=== PATIENT | male | born 1950 | race Hispanic/Latino ===

== ENCOUNTER 2017-02-14 16:04 | Inpatient (IN) | payer BC, MEDICARE ==
--- NOTE | 2017-02-14 17:25 | C.PDOC ---
History Of Present Illness 66 y/o male with Hx of HLD, HTN, DM and Asthma sent to ED by PMD for high blood pressure and abnormality to EKG. Patient also reports intermittent upper left arm pain 5/10 radiating to neck since last night. Patient saw Dr. Bishop who referred patient come to ED for further evaluation. Patient denies sob, dyspnea with exertion, fever or any other complaints at this time. Time Seen by Provider: 02/14/17 16:56 Chief Complaint (Nursing): Chest Pain History Per: Patient History/Exam Limitations: no limitations Onset/Duration Of Symptoms: Hrs Current Symptoms Are (Timing): Still Present Quality: "Pain" Past Medical History Reviewed: Historical Data, Nursing Documentation, Vital Signs Vital Signs: Last Vital Signs Temp 98.0 F 02/15/17 08:07 Pulse 69 02/15/17 08:07 Resp 20 02/15/17 08:07 BP 171/84 H 02/15/17 08:07 Pulse Ox 96 02/15/17 08:07 - Medical History PMH: Asthma, Diabetes, HTN, Pneumonia Surgical History: No Surg Hx Family History: States: No Known Family Hx - Social History Hx Tobacco Use: Yes (smokes pipe) Hx Alcohol Use: No Hx Substance Use: No - Immunization History Hx Influenza Vaccination: No Review Of Systems Except As Marked, All Systems Reviewed And Found Negative. Constitutional: Negative for: Fever, Chills Cardiovascular: Negative for: Chest Pain Gastrointestinal: Negative for: Nausea, Vomiting Musculoskeletal: Positive for: Neck Pain, Arm Pain Skin: Negative for: Rash Neurological: Negative for: Weakness, Numbness Physical Exam - Physical Exam Appears: Non-toxic, No Acute Distress Skin: Normal Color, Warm, Dry, No Rash Head: Atraumatic, Normacephalic Eye(s): bilateral: Normal Inspection Oral Mucosa: Moist Neck: Normal ROM, Supple Chest: Symmetrical Cardiovascular: Murmur (Holosystolic) Respiratory: Normal Breath Sounds, No Rales, No Rhonchi, No Wheezing Gastrointestinal/Abdominal: Soft, No Tenderness, No Guarding, No Rebound Extremity: No Pedal Edema, Capillary Refill (<2 seconds), No Swelling Neurological/Psych: Oriented x3 ED Course And Treatment - Laboratory Results Result Diagrams: 02/15/17 07:48 02/15/17 07:48 O2 Sat by Pulse Oximetry: 97 (RA) Pulse Ox Interpretation: Normal Medical Decision Making Medical Decision Making: Discussed with Dr. Abdi agreed to admit patient and request for Dr. Moses to evaluate Disposition Discussed With : Nasreen Abdi Counseled Patient/Family Regarding: Studies Performed - Disposition Disposition: HOSPITALIZED Disposition Time: 18:33 Condition: SERIOUS - POA Present On Arrival: None - Clinical Impression Clinical Impression: Chest pain, ACS (acute coronary syndrome), Abnormal EKG - Scribe Statement The provider has reviewed the documentation as recorded by the Jameyibhunter Jimenez All medical record entries made by the Jameyibe were at my direction and personally dictated by me. I have reviewed the chart and agree that the record accurately reflects my personal performance of the history, physical exam, medical decision making, and the department course for this patient. I have also personally directed, reviewed, and agree with the discharge instructions and disposition. Decision To Admit - Pt Status Changed To: Hospital Disposition Of: Inpatient - Admit Certification Admit to Inpatient:: After my assessment, the patient will require hospitalization for at least two midnights. This is because of the severity of symptoms shown, intensity of services needed, and/or the medical risk in this patient being treated as an outpatient. - InPatient: Physician Admission Certification: I certify that this patient requires 2 or more midnights of care for the following reason:: acs - . Bed Request Type: Telemetry Patient Diagnosis: Chest pain, ACS (acute coronary syndrome), Abnormal EKG
[2017-02-14 17:37] LABS: BASO % 0.6 % (0.0-2.0); EOS # 0.1 K/uL (0.0-0.7); EOS % 1.8 % (0.0-4.0); HEMATOCRIT 42.1 % (35.0-51.0); LYMPH # 2.4 K/uL (1.0-4.3); LYMPH % 35.4 % (20.0-40.0); MEAN CELL VOLUME 84.5 fL (80.0-94.0); MEAN CORPUSCULAR HEMOGLOBIN 29.1 pg (27.0-31.0); MEAN CORPUSCULAR HGB CONC 34.5 g/dL (33.0-37.0); MEAN PLATELET VOLUME 7.8 fL (7.2-11.7); MONO # 0.7 K/uL (0.0-0.8); MONO % 9.9 % (0.0-10.0); NRBC % 0.1 % (0.0-2.0); RED CELL DISTRIBUTION WIDTH 13.5 % (11.5-14.5); WHITE BLOOD COUNT 6.8 K/uL (4.8-10.8)
[2017-02-14 17:44] LABS: CHLORIDE 102 mmol/L (98-107); POTASSIUM 3.5 mmol/L (3.6-5.2); SODIUM 139 mmol/L (132-148)
[2017-02-14 17:46] LABS: ALB/GLOB RATIO 1.3 (1.0-2.1); ALKALINE PHOSPHATASE 107 U/L (38-126); AST/SGOT 28 U/L (17-59); BILIRUBIN,TOTAL 0.5 mg/dL (0.2-1.3); CARBON DIOXIDE 26 mmol/L (22-30); GFR AFRICAN-AMERICAN > 60; TOTAL PROTEIN 7.4 g/dL (6.3-8.3)
[2017-02-14 17:47] LABS: ALT/SGPT 34 U/L (21-72); BLOOD UREA NITROGEN 17 mg/dL (9-20); CALCIUM 8.9 mg/dl (8.6-10.4); GLUCOSE,RANDOM 226 mg/dL (75-110)
[2017-02-14] MEDS ORDERED: Enoxaparin 40 mg Syringe SC STA (18:38)
[2017-02-14] MEDS ORDERED: Nitroglycerin 2% Ointment Foilpak UD TOP STA (18:40)
[2017-02-14] MEDS ORDERED: Nitroglycerin 2% Ointment Foilpak UD TOP ONE (18:48)
--- NOTE | 2017-02-14 19:10 | RAD ---
PROCEDURE: CHEST RADIOGRAPH, 1 VIEW HISTORY: chest pain COMPARISON: None available. FINDINGS: LUNGS: Mild to moderate venous congestion. Patchy left basilar airspace opacity. Question trace left pleural effusion. PLEURA: As above. CARDIOVASCULAR: Cardiomegaly. Tortuous ectatic aorta. OSSEOUS STRUCTURES: Degenerative changes in the spine and shoulders. VISUALIZED UPPER ABDOMEN: Normal. OTHER FINDINGS: None. IMPRESSION: Mild to moderate venous congestion. Patchy left basilar airspace opacity. Question trace left pleural effusion. Cardiomegaly. Tortuous ectatic aorta.
[2017-02-14] MEDS ORDERED: Enoxaparin 80 mg Syringe ONE (19:40)
[2017-02-14] MEDS ORDERED: Enoxaparin 40 mg Syringe ONE (19:40)
--- NOTE | 2017-02-14 21:44 | CP.PCM.CON ---
Past Patient History - Past Social History Smoking Status: Former Smoker - CARDIAC Hx Hypertension: Yes - PULMONARY Hx Asthma: Yes Hx Pneumonia: Yes - ENDOCRINE/METABOLIC Hx Endocrine Disorders: Yes Hx Diabetes Mellitus Type 1: Yes - PSYCHIATRIC Hx Substance Use: No - SURGICAL HISTORY Hx Surgeries: Yes Hx Cataract Extraction: Yes - ANESTHESIA Hx Anesthesia: Yes Hx Anesthesia Reactions: No Meds Allergies/Adverse Reactions: Allergies Allergy/AdvReac Type Severity Reaction Status Date / Time Penicillins Allergy Intermediate Verified 12/24/15 08:05 - Medications Medications: Current Medications Metoprolol Tartrate (Lopressor) 25 mg PO BID [facility] Rosuvastatin Calcium (Crestor) 10 mg PO HS [facility] Results - Vital Signs Recent Vital Signs: Last Vital Signs Temp 98 F 02/14/17 20:39 Pulse 93 H 02/14/17 20:39 Resp 20 02/14/17 20:39 BP 156/91 H 02/14/17 20:39 Pulse Ox 98 02/14/17 20:39 - Labs Result Diagrams: 02/14/17 17:29 02/14/17 17:29
[2017-02-14 22:30] VITALS: RESP 20
[2017-02-15 08:01] LABS: BASO % 0.5 % (0.0-2.0); EOS # 0.1 K/uL (0.0-0.7); EOS % 2.4 % (0.0-4.0); HEMATOCRIT 39.5 % (35.0-51.0); LYMPH % 37.4 % (20.0-40.0); MEAN CELL VOLUME 85.4 fL (80.0-94.0); MEAN CORPUSCULAR HEMOGLOBIN 28.8 pg (27.0-31.0); MEAN CORPUSCULAR HGB CONC 33.8 g/dL (33.0-37.0); MEAN PLATELET VOLUME 7.9 fL (7.2-11.7); MONO # 0.6 K/uL (0.0-0.8); MONO % 12.1 % (0.0-10.0); RED CELL DISTRIBUTION WIDTH 13.7 % (11.5-14.5); WHITE BLOOD COUNT 5.3 K/uL (4.8-10.8)
[2017-02-15 08:13] LABS: CHLORIDE 105 mmol/L (98-107); POTASSIUM 3.3 mmol/L (3.6-5.2); SODIUM 142 mmol/L (132-148)
[2017-02-15] MEDS ORDERED: Aminophylline 25 mg/ml Inj ONE (08:13)
[2017-02-15 08:15] LABS: ALB/GLOB RATIO 1.2 (1.0-2.1); ALKALINE PHOSPHATASE 83 U/L (38-126); AST/SGOT 26 U/L (17-59); BILIRUBIN,TOTAL 0.6 mg/dL (0.2-1.3); BLOOD UREA NITROGEN 14 mg/dL (9-20); CARBON DIOXIDE 28 mmol/L (22-30); GFR AFRICAN-AMERICAN > 60; GLUCOSE,RANDOM 122 mg/dL (75-110); TOTAL PROTEIN 6.6 g/dL (6.3-8.3)
[2017-02-15 08:16] LABS: ALT/SGPT 32 U/L (21-72); CALCIUM 8.4 mg/dl (8.6-10.4)
[2017-02-15] MEDS: Enoxaparin 40 mg Syringe SC SCH (10:50)
--- NOTE | 2017-02-15 14:52 | CARD ---
APPROVED REPORT EKG Measurement Heart [id number] IA [id number] [id number] [id number] [id number] <Conclusion> Sinus tachycardia Left axis deviation Possible Inferior infarct, age undetermined Cannot rule out Anterior infarct, age undetermined Abnormal ECG
[2017-02-15] MEDS: Potassium Chloride 20 mEq ER Tab PO SCH ×2 (16:25→19:58)
--- NOTE | 2017-02-15 16:31 | CARD ---
APPROVED REPORT Protocol: LEXISCAN Test Type: LEXISCAN STRESS Test Indications: CP ABN ECG Target HR: 154 bpm Resting ECG: abnormal Resting Heart Rate: 75 bpm Resting Blood Pressure: 134/80mmHg submaximum (85%): 131 bpm TEST SUMMARY PREINFSNHYPERV.08:[id number]/80.2. INFUSIONDOSE 100:300.00.01.078/.1. MBXYHEXVG41:[id number]/80.0. PROCEDURE Pharmacologic stress testing was performed using 0.4mg per 5ml of regadenoson given intravenously over 7-10 seconds. POST EXERCISE Reason for Termination: Lexiscan protocol completed Target HR: No Max HR: 78 bpm 63% of Maximum Predicted HR: 154 bpm Exercise duration: 00:30 min:sec, 0 Stage Exercise capacity: 1.0METs Max Blood Pressure: 140/80mmHg Blood Pressure response to exercise: normal resting BP - appropriate response Heart Rate response to exercise: appropriate Chest Pain: No, none Angina index: 0 Arrhythmia: No, none ST Change: Yes, Depression downsloping Deviation: 0 mm INTERPRETATION Stress EKG Conclusion: Nuclear images to follow EXAM: Myocardial Perfusion STRESS/REST Imaging Protocol The imaging protocol used to acquire images was Stress Tc-99m/rest Tc-99m 1 day Stress Spect myocardial perfusion imaging was performed in supine position 41 minutes following the injection of 13.1 mCi of Tc-99 Myoview. Gated Rest Spect was performed 40 minutes after intravenous 31.4 mCi Tc-99 Myoview injection. The images were gated to evaluate regional wall motion and calculate ventricular ejection fraction.Images were reconstructed using backfilter projection method in short horizontal and verticle long axis. Spect slices were generated. RESTING DATA EXQ670.09ozHJ8.10L/min ESV99.00mlMyocardial Mrnb090.00g Av. Heart Rate53.00bpm EF54.00% STRESS DATA WTB197.77jwPX1.20L/min ESV87.00mlMyocardial Njym776.00g EF53.00% Regional WT score at stress:2.00 Regional WM score at stress:0.00 Summed WT score at stress:18.00 Av. Heart Rate62.00bpmSummed WM score at stress:5.00 LV Perf. Quant 17 Seg. SSS6.00 17 Seg. SRS4.00 17 Seg. SDS5.00 Stress Defect Extent (% LAD)10.00Rest Defect Extent (% LAD)5.00Rev. Defect Extent (% LAD)9.40 Stress Defect Extent (% LCX)71.30Rest Defect Extent (% LCX)21.30Rev. Defect Extent (% LCX)65.00 Stress Defect Extent (% RCA)0.00Rest Defect Extent (% RCA)0.00Rev. Defect Extent (% RCA)0.00 Stress Defect Extent (% JOSE ALEJANDRO)16.30Rest Defect Extent (% JOSE ALEJANDRO)6.30Rev. Defect Extent (% JOSE ALEJANDRO)15.00 Other Information Quality:Good IMPRESSION Abnormal Myocardial Perfusion exercise stress study Left Ventricle LV Function:Left ventricle systolic function is low normal. The Ejection Fraction is 50-55%. Conclusion 1. There is moderate sized stress induced recersible lateral wall perfusion defect suggestive of stress induced ischemia. EF 50-55% 2. Abnormal stress test
--- NOTE | 2017-02-15 16:54 | CP.PCM.PN ---
Subjective - Date & Time of Evaluation Date of Evaluation: 02/15/17 Time of Evaluation: 16:53 - Subjective Subjective: Patient has abnormal stress test Cardiac cath tomorrow Will d/w the patient Objective - Vital Signs/Intake and Output Vital Signs (last 24 hours): Temp Pulse Resp BP Pulse Ox 98.0 F 69 20 189/91 H 97 02/15/17 08:07 02/15/17 08:07 02/15/17 08:07 02/15/17 10:50 02/15/17 09:25 Intake and Output: 02/15/17 02/15/17 06:59 18:59 Intake Total 0 600 Balance 0 600 - Medications Medications: Current Medications Amlodipine Besylate (Norvasc) 5 mg PO DAILY [facility] Aspirin (Aspirin Chewable) 81 mg PO DAILY [facility] Last Admin: 02/15/17 10:50 Dose: 81 mg Clopidogrel Bisulfate (Plavix) 75 mg PO DAILY [facility] Last Admin: 02/15/17 10:50 Dose: 75 mg Enoxaparin Sodium (Lovenox) 40 mg SC DAILY [facility] Last Admin: 02/15/17 10:50 Dose: 40 mg Losartan Potassium (Cozaar) 50 mg PO DAILY [facility] Metoprolol Tartrate (Lopressor) 25 mg PO BID [facility] Last Admin: 02/15/17 10:50 Dose: 25 mg Potassium Chloride (K-Dur 20 Meq Er Tab) 40 meq PO Q4 [facility] Stop: 02/15/17 20:01 Last Admin: 02/15/17 16:25 Dose: 40 meq Rosuvastatin Calcium (Crestor) 10 mg PO HS [facility] Last Admin: 02/14/17 22:12 Dose: 10 mg - Labs Labs: 02/15/17 07:48 02/15/17 07:48
--- NOTE | 2017-02-15 19:56 | CARD ---
APPROVED REPORT EXAM: Two-dimensional and M-mode echocardiogram with Doppler and color Doppler. Other Information Quality : GoodRhythm : NSR INDICATION Abnormal EKG/Arrhythmia Chest Pain RISK FACTORS Hypertension Hyperlipidemia Diabetes 2D DIMENSIONS IVSd1.9 (0.7-1.1cm)LVDd4.8 (3.9-5.9cm) LVOT Diameter2.6 (1.8-2.4cm)PWd1.7 (0.7-1.1cm) LVDs3.0 (2.5-4.0cm)FS (%) 37.6 % LVEF (%)67.5 (>50%) M-Mode DIMENSIONS Left Atrium (MM)4.12 (2.5-4.0cm)Aortic Root3.70 (2.2-3.7cm) Aortic Cusp Exc.2.30 (1.5-2.0cm) Aortic Valve AoV Peak Rnwyxscw113.9cm/sAoV VTI49.4cmAO Peak GR.30mmHg LVOT Peak Jxyilqux714.0cm/sLVOT VTI29.80cmAO Mean GR.18mmHg CAPRI (VMAX)2.34ss2ODJ (VTI)3.85ss8OU P 1/2 Yyhb081hl Mitral Valve MV E Iqjvyomr10.4cm/sMV A Gzbrmjlo04.6cm/sE/A ratio1.3 TDI E/Lateral E'0.0E/Medial E'0.0 Tricuspid Valve TR Peak Jqpvhsyb348ob/sTR Peak Gr.07fnTtVRTC23bwTh LEFT VENTRICLE The left ventricle is normal size. There is moderate to severely increased wall thickness. . Septal thickness is 2.4 cm, posterior wall is 1.7 cm. There is asymetric septal hypertrophy but there is no doppler evidence of LV outflow obstruction. The left ventricular function is normal. The left ventricular ejection fraction is within the normal range. About 70% No regional wall motion abnormalities noted. Transmitral Doppler flow pattern is Grade II-pseudonormal filling dynamics. No left ventricle thrombus noted on this study. There is no ventricular septal defect visualized. There is no left ventricular aneurysm. There is no mass noted in the left ventricle. RIGHT VENTRICLE The right ventricle is normal size. There is normal right ventricular wall thickness. The right ventricular systolic function is normal. ATRIA The left atrium size is normal. The right atrium size is normal. The interatrial septum is intact with no evidence for an atrial septal defect. AORTIC VALVE The aortic valve valve leaflets are thcikened and demonstrate low normal opening or slightly reduced . Peak gradient is 25 mm Hg. Mild eccentric aortic regurgitation is present. There is no aortic valvular stenosis. There is no aortic valvular vegetation. MITRAL VALVE The mitral valve is normal in structure and function. There is no evidence of mitral valve prolapse. There is no mitral valve stenosis. There is no mitral valve regurgitation noted. TRICUSPID VALVE The tricuspid valve is normal in structure and function. There is no tricuspid valve regurgitation noted. There is no tricuspid valve prolapse or vegetation. There is no tricuspid valve stenosis. PULMONIC VALVE The pulmonary valve is normal in structure and function. There is no pulmonic valvular regurgitation. There is no pulmonic valvular stenosis. GREAT VESSELS The aortic root is normal in size. The ascending aorta is normal in size. The pulmonary artery is normal. The IVC is normal in size and collapses >50% with inspiration. PERICARDIAL EFFUSION The pericardium appears normal. There is no pleural effusion. <Conclusion> The left ventricular function is normal. The left ventricular ejection fraction is within the normal range. About 70% There is moderate to severely increased wall thickness. . Septal thickness is 2.4 cm, posterior wall is 1.7 cm. There is asymetric septal hypertrophy but there is no doppler evidence of LV outflow obstruction. The aortic valve valve leaflets are thcikened and demonstrate low normal opening or slightly reduced . Peak gradient is 25 mm Hg. Mild eccentric aortic regurgitation is present.
--- NOTE | 2017-02-15 21:28 | CP.PCM.HP ---
Past Patient History - Past Medical History & Family History Past Medical History?: Yes - Past Social History Smoking Status: Former Smoker - CARDIAC Hx Hypertension: Yes - PULMONARY Hx Asthma: Yes Hx Pneumonia: Yes - HEENT Hx Cataracts: Yes Other/Comment: [place]. Cataract Removed October 2015. - RENAL Hx Chronic Kidney Disease: No - ENDOCRINE/METABOLIC Hx Endocrine Disorders: Yes Hx Diabetes Mellitus Type 1: Yes - HEMATOLOGICAL/ONCOLOGICAL Hx Blood Disorders: No - INTEGUMENTARY Hx Dermatological Problems: No - MUSCULOSKELETAL/RHEUMATOLOGICAL Hx Arthritis: Yes (Knees.) Hx Falls: Yes Other/Comment: Cyst at Rt. Side of the Back. - GASTROINTESTINAL Hx Hemorrhoids: Yes - GENITOURINARY/GYNECOLOGICAL Hx Genitourinary Disorders: No - PSYCHIATRIC Hx Substance Use: No - SURGICAL HISTORY Hx Surgeries: Yes Hx Cataract Extraction: Yes - ANESTHESIA Hx Anesthesia: Yes Hx Anesthesia Reactions: No Hx Malignant Hyperthermia: No Has any member of the family had a problem w/ anesthesia?: No Meds Allergies/Adverse Reactions: Allergies Allergy/AdvReac Type Severity Reaction Status Date / Time Penicillins Allergy Intermediate Verified 12/24/15 08:05 Physical Exam - Constitutional Appears: Well - Head Exam Head Exam: ATRAUMATIC, NORMAL INSPECTION, NORMOCEPHALIC - Eye Exam Eye Exam: EOMI, Normal appearance, PERRL Pupil Exam: NORMAL ACCOMODATION, PERRL - ENT Exam ENT Exam: Mucous Membranes Moist, Normal Exam - Neck Exam Neck exam: Positive for: Normal Inspection - Respiratory Exam Respiratory Exam: Decreased Breath Sounds - Cardiovascular Exam Cardiovascular Exam: REGULAR RHYTHM, +S1, +S2 - GI/Abdominal Exam GI & Abdominal Exam: Diminished Bowel Sounds, Soft - Rectal Exam Rectal Exam: Deferred Results - Vital Signs Recent Vital Signs: Last Vital Signs Temp 98.4 F 02/15/17 15:13 Pulse 59 L 02/15/17 15:13 Resp 20 02/15/17 15:13 BP 174/87 H 02/15/17 18:49 Pulse Ox 95 02/15/17 15:13 - Labs Result Diagrams: 02/15/17 07:48 02/15/17 07:48 Labs: Laboratory Results - last 24 hr 02/15/17 02/15/17 02/15/17 00:29 06:36 07:48 WBC 5.3 RBC 4.62 Hgb 13.3 Hct 39.5 MCV 85.4 MCH 28.8 MCHC 33.8 RDW 13.7 Plt Count 210 MPV 7.9 Neut % (Auto) 47.6 L Lymph % (Auto) 37.4 [place] % (Auto) 12.1 H Eos % (Auto) 2.4 Baso % (Auto) 0.5 Neut # 2.5 Lymph # 2.0 [place] # 0.6 Eos # 0.1 Baso # 0.0 Sodium Potassium Chloride Carbon Dioxide Anion Gap BUN Creatinine Est GFR ( Amer) Est GFR (Non-Af Amer) POC Glucose (mg/dL) 132 H Random Glucose Calcium Total Bilirubin AST ALT Alkaline Phosphatase Total Creatine Kinase 127 CK-MB (Mass) 1.16 Troponin I, Quant < 0.0120 Total Protein Albumin Globulin Albumin/Globulin Ratio 02/15/17 02/15/17 02/15/17 07:48 07:48 16:37 WBC RBC Hgb Hct MCV MCH MCHC RDW Plt Count MPV Neut % (Auto) Lymph % (Auto) [place] % (Auto) Eos % (Auto) Baso % (Auto) Neut # Lymph # [place] # Eos # Baso # Sodium 142 Potassium 3.3 L Chloride 105 Carbon Dioxide 28 Anion Gap 12 BUN 14 Creatinine 0.7 L Est GFR ( Amer) > 60 Est GFR (Non-Af Amer) > 60 POC Glucose (mg/dL) 181 H Random Glucose 122 H Calcium 8.4 L Total Bilirubin 0.6 AST 26 ALT 32 Alkaline Phosphatase 83 Total Creatine Kinase 104 CK-MB (Mass) 1.03 Troponin I, Quant 0.0130 Total Protein 6.6 Albumin 3.6 Globulin 3.1 Albumin/Globulin Ratio 1.2
[2017-02-15] MEDS: (Novolog) Insulin Aspart, Recombinant 100 u/ml 10 ml vial SC SCH (21:56)
[2017-02-15] MEDS: (Lantus) Insulin Glargine, Recombinant SC SCH (22:02)
[2017-02-16 08:21] LABS: HEMATOCRIT 42.7 % (35.0-51.0); MEAN CELL VOLUME 85.2 fL (80.0-94.0); MEAN CORPUSCULAR HEMOGLOBIN 28.8 pg (27.0-31.0); MEAN CORPUSCULAR HGB CONC 33.8 g/dL (33.0-37.0); RED CELL DISTRIBUTION WIDTH 13.4 % (11.5-14.5); WHITE BLOOD COUNT 6.1 K/uL (4.8-10.8)
[2017-02-16 08:24] LABS: INR 1.1
[2017-02-16 08:26] LABS: CHLORIDE 106 mmol/L (98-107); SODIUM 142 mmol/L (132-148)
[2017-02-16 08:27] LABS: POTASSIUM 3.8 mmol/L (3.6-5.2)
[2017-02-16 08:29] LABS: CARBON DIOXIDE 27 mmol/L (22-30); GFR AFRICAN-AMERICAN > 60
[2017-02-16 08:30] LABS: BLOOD UREA NITROGEN 14 mg/dL (9-20); CALCIUM 8.6 mg/dl (8.6-10.4); GLUCOSE,RANDOM 133 mg/dL (75-110)
[2017-02-16] MEDS ORDERED: Midazolam 2 MG/2 ML VIAL ONE (10:09)
[2017-02-16] MEDS ORDERED: Iohexol 350mg/ml 100 ML ONE (10:40)
--- NOTE | 2017-02-16 11:29 | CP.PCM.PN ---
Subjective - Date & Time of Evaluation Date of Evaluation: 02/16/17 Time of Evaluation: 11:25 - Subjective Subjective: Progress note. Attending: Dr. Abdi This is a 66 yo male with past medical hx of HTN, DM, HLD presenting with elevated blood pressure and unstable angina like sx. Patient states that he has been having pain all along his left arm and up into his head/jaw but with no associated chest pain. This has been going on for roughly 2 weeks and he has never had this before. He went to see his PMD Dr. Bishop who examined him, told him he was concerned over his sx, and sent him to the ER. Pt says that his blood pressure at the office was in the 140s. He has never had a cardiac cath before. He says he is compliant with all his bp meds. Pt seen and examined at bedside. No acute distress. Pt is asymptomatic. Cardiac cath today. PMH: HTN, HLD, DM Home meds: bystolic, lisinopril-HCTZ Social hx: Former smoker. Former heavy drinker, now socially. Denies drug use. Of [place] descent. FH: denies Objective - Vital Signs/Intake and Output Vital Signs (last 24 hours): Temp Pulse Resp BP Pulse Ox 97.4 F L 60 20 182/71 H 95 02/16/17 07:35 02/16/17 07:35 02/16/17 07:35 02/16/17 09:14 02/16/17 07:35 - Medications Medications: Current Medications Amlodipine Besylate (Norvasc) 10 mg PO DAILY [facility] Aspirin (Aspirin Chewable) 81 mg PO DAILY [facility] Last Admin: 02/15/17 10:50 Dose: 81 mg Clopidogrel Bisulfate (Plavix) 75 mg PO DAILY [facility] Last Admin: 02/15/17 10:50 Dose: 75 mg Enoxaparin Sodium (Lovenox) 40 mg SC DAILY [facility] Last Admin: 02/15/17 10:50 Dose: 40 mg Insulin Aspart (Novolog) 0 unit SC ACHS [facility] PRN Reason: Protocol Last Admin: 02/15/17 21:56 Dose: Not Given Insulin Glargine (Lantus) 7 unit SC HS [facility] Last Admin: 02/15/17 22:02 Dose: 7 u Losartan Potassium (Cozaar) 50 mg PO DAILY [facility] Last Admin: 02/16/17 09:14 Dose: 50 mg Metoprolol Tartrate (Lopressor) 25 mg PO BID [facility] Last Admin: 02/16/17 09:14 Dose: 25 mg Rosuvastatin Calcium (Crestor) 10 mg PO HS [facility] Last Admin: 02/15/17 22:01 Dose: 10 mg - Labs Labs: 02/16/17 08:04 02/16/17 08:04 PT 12.1 SECONDS (9.7-12.2) 02/16/17 08:04 INR 1.1 02/16/17 08:04 APTT 34 SECONDS (21-34) 02/16/17 08:04 - Constitutional Appears: Non-toxic, No Acute Distress - Head Exam Head Exam: ATRAUMATIC, NORMAL INSPECTION, NORMOCEPHALIC - Eye Exam Eye Exam: EOMI - ENT Exam ENT Exam: Mucous Membranes Moist - Neck Exam Neck Exam: Full ROM, Normal Inspection - Respiratory Exam Respiratory Exam: NORMAL BREATHING PATTERN. absent: Respiratory Distress - Cardiovascular Exam Cardiovascular Exam: +S1, +S2 - GI/Abdominal Exam GI & Abdominal Exam: Soft, Normal Bowel Sounds. absent: Tenderness - Extremities Exam Extremities Exam: Full ROM, Normal Inspection - Back Exam Back Exam: NORMAL INSPECTION - Neurological Exam Neurological Exam: Alert, Awake, Oriented x3 - Psychiatric Exam Psychiatric exam: Normal Affect, Normal Mood - Skin Skin Exam: Dry, Intact, Normal Color, Warm Assessment and Plan - Assessment and Plan (Free Text) Assessment: This is a 66 yo male with past medical hx of HTN, HLD, DM presenting with unstable angina/uncontrolled htn 1. Unstable angina/r/o ACS - abnormal stress test -echo shows normal LV fx, mild AR, septal hypertrophy -asa 81 mg po daily -plavix 75 daily -lovenox 40 -hold above for procedure today -EKG shows sinus tachy at 102 -CXR showed mild venous congestion -trops negative x 3 -BNP wnl 2. hypertensive urgency -increased norvasc to 10 daily -losartan 50 -lopressor bid 3. hx of DM -ISS -lantus 7 units HS 4. hx of HLD -crestor 10 5. GI/DVT ppx -lovenox -protonix discussed with Dr. Abdi.
[2017-02-16] MEDS: (Novolog) Insulin Aspart, Recombinant 100 u/ml 10 ml vial SC SCH ×4 (12:33→22:01)
[2017-02-16] MEDS: Enoxaparin 40 mg Syringe SC SCH (15:09)
[2017-02-16] MEDS: Sodium Chloride 0.9% 1,000 ML IV SCH (16:30)
--- NOTE | 2017-02-16 17:50 | CP.PCM.PN ---
Subjective - Date & Time of Evaluation Date of Evaluation: 02/16/17 Time of Evaluation: 12:40 - Subjective Subjective: clinically same Objective - Vital Signs/Intake and Output Vital Signs (last 24 hours): Temp Pulse Resp BP Pulse Ox 98.1 F 60 20 174/84 H 95 02/16/17 16:00 02/16/17 16:00 02/16/17 16:00 02/16/17 16:00 02/16/17 16:00 - Medications Medications: Current Medications Amlodipine Besylate (Norvasc) 10 mg PO DAILY [facility] Last Admin: 02/16/17 15:10 Dose: Not Given Aspirin (Aspirin Chewable) 81 mg PO DAILY [facility] Last Admin: 02/16/17 15:08 Dose: 81 mg Clopidogrel Bisulfate (Plavix) 75 mg PO DAILY [facility] Last Admin: 02/16/17 15:08 Dose: 75 mg Enoxaparin Sodium (Lovenox) 40 mg SC DAILY [facility] Last Admin: 02/16/17 15:09 Dose: Not Given Sodium Chloride (Sodium Chloride 0.9%) 1,000 mls @ 100 mls/hr IV .Q10H [facility] Insulin Aspart (Novolog) 0 unit SC [facility] PRN Reason: Protocol Last Admin: 02/16/17 12:34 Dose: Not Given Insulin Glargine (Lantus) 7 unit SC [facility] Last Admin: 02/15/17 22:02 Dose: 7 u Losartan Potassium (Cozaar) 50 mg PO DAILY [facility] Last Admin: 02/16/17 09:14 Dose: 50 mg Metoprolol Tartrate (Lopressor) 25 mg PO BID [facility] Last Admin: 02/16/17 09:14 Dose: 25 mg Rosuvastatin Calcium (Crestor) 10 mg PO [facility] Last Admin: 02/15/17 22:01 Dose: 10 mg - Labs Labs: 02/16/17 08:04 02/16/17 08:04 PT 12.1 SECONDS (9.7-12.2) 02/16/17 08:04 INR 1.1 02/16/17 08:04 APTT 34 SECONDS (21-34) 02/16/17 08:04 - Constitutional Appears: Well - Head Exam Head Exam: ATRAUMATIC, NORMAL INSPECTION, NORMOCEPHALIC - Eye Exam Eye Exam: EOMI, Normal appearance, PERRL Pupil Exam: NORMAL ACCOMODATION, PERRL - ENT Exam ENT Exam: Mucous Membranes Moist, Normal Exam - Neck Exam Neck Exam: Full ROM, Normal Inspection. absent: Lymphadenopathy - Respiratory Exam Respiratory Exam: Decreased Breath Sounds - Cardiovascular Exam Cardiovascular Exam: REGULAR RHYTHM, +S1, +S2 - GI/Abdominal Exam GI & Abdominal Exam: Soft, Diminished Bowel Sounds - Rectal Exam Rectal Exam: Deferred
[2017-02-16] MEDS ORDERED: Iohexol 300 100 ML IJ ONE (21:17)
--- NOTE | 2017-02-16 22:14 | CP.PCM.PN ---
Subjective - Date & Time of Evaluation Date of Evaluation: 02/16/17 Time of Evaluation: 12:05 - Subjective Subjective: Patient s/p cath Normal EF Non obstructive coronaries Dilated aortic root Check CTA Objective - Vital Signs/Intake and Output Vital Signs (last 24 hours): Temp Pulse Resp BP Pulse Ox 98.1 F 60 20 154/83 H 95 02/16/17 16:00 02/16/17 16:00 02/16/17 16:00 02/16/17 18:42 02/16/17 16:00 - Medications Medications: Current Medications Amlodipine Besylate (Norvasc) 10 mg PO DAILY [facility] Last Admin: 02/16/17 15:10 Dose: Not Given Aspirin (Aspirin Chewable) 81 mg PO DAILY [facility] Last Admin: 02/16/17 15:08 Dose: 81 mg Clopidogrel Bisulfate (Plavix) 75 mg PO DAILY [facility] Last Admin: 02/16/17 15:08 Dose: 75 mg Enoxaparin Sodium (Lovenox) 40 mg SC DAILY [facility] Last Admin: 02/16/17 15:09 Dose: Not Given Sodium Chloride (Sodium Chloride 0.9%) 1,000 mls @ 100 mls/hr IV .Q10H [facility] Last Admin: 02/16/17 16:30 Dose: Not Given Insulin Aspart (Novolog) 0 unit SC [facility] PRN Reason: Protocol Last Admin: 02/16/17 22:01 Dose: Not Given Insulin Glargine (Lantus) 7 unit SC [facility] Last Admin: 02/15/17 22:02 Dose: 7 u Losartan Potassium (Cozaar) 50 mg PO DAILY [facility] Last Admin: 02/16/17 09:14 Dose: 50 mg Metoprolol Tartrate (Lopressor) 25 mg PO BID [facility] Last Admin: 02/16/17 18:42 Dose: 25 mg Rosuvastatin Calcium (Crestor) 10 mg PO HS [facility] Last Admin: 02/15/17 22:01 Dose: 10 mg - Labs Labs: 02/16/17 08:04 02/16/17 08:04 PT 12.1 SECONDS (9.7-12.2) 02/16/17 08:04 INR 1.1 02/16/17 08:04 APTT 34 SECONDS (21-34) 02/16/17 08:04
[2017-02-16] MEDS: (Lantus) Insulin Glargine, Recombinant SC SCH (22:16)
--- NOTE | 2017-02-16 22:16 | CT ---
EXAM: CT Chest Without and With Intravenous Contrast CLINICAL HISTORY: 66 years old, male; Pain; Other: Chest; Chest pain; Type not specified; Additional info: R/O thoracic aortic aneurysm TECHNIQUE: Axial computed tomography images of the chest without and with intravenous contrast during the arterial phase of enhancement. All CT scans at this facility use one or more dose reduction techniques, viz.: automated exposure control; ma/kV adjustment per patient size (including targeted exams where dose is matched to indication; i.e. head); or iterative reconstruction technique. Coronal and sagittal reformatted images were created and reviewed. CONTRAST: 100 mL of visipaque 320 administered intravenously. COMPARISON: There are no prior studies for comparison. FINDINGS: Heart, aorta and Pulmonary arteries: The heart is enlarged. There is no pericardial effusion There are coronary calcifications. The ascending aorta is mildly dilated 4.2 cm in maximal dimension. There is no thoracic aortic dissection. There is perfusion of the 3 arch vessels. There are vascular calcifications. Pulmonary vessels are unremarkable. Technique limits evaluation of peripheral pulmonary arteries. Lungs: Trachea and main bronchi are patent. There is no pneumothorax. There is no lobar or segmental consolidation. There is dependent atelectasis at the lung bases. There is subsegmental atelectasis/infiltrate at the left base. There are no effusions Mediastinum: The esophagus is unremarkable. There is a small hiatal hernia. There are no pathologically enlarged mediastinal or hilar nodes. Thyroid: The thyroid is suboptimal. There is an enhancing left thyroid nodule. Bones/joints: There are degenerative changes in the osseus structures. Soft tissues: unremarkable Upper abdomen: Refer to following report for abdominal findings IMPRESSION: Cardiomegaly and atherosclerotic disease, mild dilatation of the ascending aorta 4.2 cm maximal dimension, no dissection; no focal pneumonia EXAM: CT Abdomen and Pelvis Without and With Intravenous Contrast EXAM DATE/TIME: 02/16/2017 5:39 PM CLINICAL HISTORY: 66 years old, male; Pain; Other: Chest; Chest pain; Type not specified; Additional info: R/O thoracic aortic aneurysm TECHNIQUE: Axial computed tomography images of the abdomen and pelvis without and with intravenous contrast. All CT scans at this facility use one or more dose reduction techniques, viz.: automated exposure control; ma/kV adjustment per patient size (including targeted exams where dose is matched to indication; i.e. head); or iterative reconstruction technique. Coronal and sagittal reformatted images were created and reviewed. CONTRAST: 100 mL of visipaque 320 administered intravenously. COMPARISON: There are no prior studies for comparison. FINDINGS: Lower thorax: Refer to prior report for chest findings. ABDOMEN: Liver: unremarkable Gallbladder and bile ducts: unremarkable Pancreas: Pancreas is mildly atrophic. Spleen: unremarkable Adrenals: There is mild thickening of the adrenals. There is a 10 mm left adrenal nodule. Kidneys and ureters: Kidneys and ureters are unremarkable. There is no contrast in collecting systems or ureters. Stomach and bowel: There is a small ventral hernia. Stomach is partially distended. Rotation is normal. There is no obstruction. Ileocecal region is unremarkable. Appendix and terminal ileum are unremarkable. There is moderate stool in the colon. There is minimal diverticulosis. There is a small fecal bolus in the rectum. Appendix: See stomach and bowel PELVIS: Bladder: There is radiopaque material in the bladder. Reproductive: Prostate is mildly enlarged. Seminal vesicles are unremarkable. ABDOMEN and PELVIS: Intraperitoneal space: There is no free air or free fluid. Bones/joints: There are degenerative changes in the osseus structures. There is a bone island in the left sacrum. Soft tissues: unremarkable Vasculature: Abdominal aorta is normal in course and caliber. There is perfusion of all major abdominal aortic branches. There are occasional atherosclerotic calcifications. There are 2 left renal arteries. There is a small plaque at the origin of the superior mesenteric artery without narrowing. Lymph nodes: There is no pathologic adenopathy. IMPRESSION: No abdominal aortic aneurysm or dissection; early atherosclerotic disease; no acute solid visceral or bowel abnormality; radiopaque material in the bladder, contrast from a prior study versus blood Additional findings as described above.
[2017-02-17] MEDS: Sodium Chloride 0.9% 1,000 ML IV SCH ×4 (00:18→11:59)
[2017-02-17 07:25] LABS: BASO % 0.4 % (0.0-2.0); EOS # 0.1 K/uL (0.0-0.7); EOS % 2.5 % (0.0-4.0); LYMPH # 1.8 K/uL (1.0-4.3); LYMPH % 30.3 % (20.0-40.0); MEAN CELL VOLUME 84.9 fL (80.0-94.0); MEAN CORPUSCULAR HEMOGLOBIN 29.3 pg (27.0-31.0); MEAN CORPUSCULAR HGB CONC 34.5 g/dL (33.0-37.0); MEAN PLATELET VOLUME 7.9 fL (7.2-11.7); MONO # 0.7 K/uL (0.0-0.8); MONO % 11.3 % (0.0-10.0); RED CELL DISTRIBUTION WIDTH 13.4 % (11.5-14.5); WHITE BLOOD COUNT 5.9 K/uL (4.8-10.8)
[2017-02-17 07:43] LABS: CHLORIDE 107 mmol/L (98-107); SODIUM 140 mmol/L (132-148)
[2017-02-17 07:44] LABS: POTASSIUM 3.5 mmol/L (3.6-5.2)
[2017-02-17 07:46] LABS: ALB/GLOB RATIO 1.2 (1.0-2.1); ALKALINE PHOSPHATASE 78 U/L (38-126); ALT/SGPT 37 U/L (21-72); AST/SGOT 30 U/L (17-59); BILIRUBIN,TOTAL 0.6 mg/dL (0.2-1.3); BLOOD UREA NITROGEN 13 mg/dL (9-20); CARBON DIOXIDE 24 mmol/L (22-30); GFR AFRICAN-AMERICAN > 60; GLUCOSE,RANDOM 124 mg/dL (75-110); TOTAL PROTEIN 6.6 g/dL (6.3-8.3)
[2017-02-17 07:47] LABS: CALCIUM 8.3 mg/dl (8.6-10.4); MAGNESIUM 1.8 mg/dL (1.6-2.3); PHOSPHOROUS 3.3 mg/dL (2.5-4.5)
[2017-02-17] MEDS: (Novolog) Insulin Aspart, Recombinant 100 u/ml 10 ml vial SC SCH ×2 (08:12→12:57)
[2017-02-17 08:46] VITALS: TEMP 98.1; O2SAT 95
--- NOTE | 2017-02-17 09:23 | CP.PCM.PN ---
Subjective - Date & Time of Evaluation Date of Evaluation: 02/17/17 Time of Evaluation: :20 - Subjective Subjective: Progress note. Pt seen and examined at bedside. No acute distress. No current complaints. No more chest pain, sob. NO fevers, chills, vomiting, diarrhea. S/P cath. Objective - Vital Signs/Intake and Output Vital Signs (last 24 hours): Temp Pulse Resp BP Pulse Ox 98.1 F 60 20 184/87 H 95 02/17/17 07:20 02/17/17 07:20 02/17/17 07:20 02/17/17 07:20 02/17/17 07:20 Intake and Output: 02/17/17 02/17/17 06:59 18:59 Intake Total 2400 Balance 2400 - Medications Medications: Current Medications Amlodipine Besylate (Norvasc) 10 mg PO DAILY [facility] Last Admin: 02/16/17 15:10 Dose: Not Given Aspirin (Aspirin Chewable) 81 mg PO DAILY [facility] Last Admin: 02/16/17 15:08 Dose: 81 mg Clopidogrel Bisulfate (Plavix) 75 mg PO DAILY [facility] Last Admin: 02/16/17 15:08 Dose: 75 mg Enoxaparin Sodium (Lovenox) 40 mg SC DAILY [facility] Last Admin: 02/16/17 15:09 Dose: Not Given Sodium Chloride (Sodium Chloride 0.9%) 1,000 mls @ 100 mls/hr IV .Q10H [facility] Last Admin: 02/17/17 02:00 Dose: Not Given Potassium Chloride (Potassium Chloride 10 Meq/100 Ml) 10 meq in 100 mls @ 100 mls/hr IVPB ONCE ONE Stop: 02/17/17 10:20 Insulin Aspart (Novolog) 0 unit SC [facility] PRN Reason: Protocol Last Admin: 02/17/17 08:12 Dose: Not Given Insulin Glargine (Lantus) 7 unit SC [facility] Last Admin: 02/16/17 22:16 Dose: 7 u Losartan Potassium (Cozaar) 50 mg PO DAILY [facility] Last Admin: 02/16/17 09:14 Dose: 50 mg Metoprolol Tartrate (Lopressor) 25 mg PO BID [facility] Last Admin: 02/16/17 18:42 Dose: 25 mg Rosuvastatin Calcium (Crestor) 10 mg PO [facility] Last Admin: 02/16/17 22:15 Dose: 10 mg - Labs Labs: 02/17/17 07:10 02/17/17 07:10 PT 12.1 SECONDS (9.7-12.2) 02/16/17 08:04 INR 1.1 02/16/17 08:04 APTT 34 SECONDS (21-34) 02/16/17 08:04 - Constitutional Appears: Non-toxic, No Acute Distress - Head Exam Head Exam: ATRAUMATIC, NORMAL INSPECTION, NORMOCEPHALIC - Eye Exam Eye Exam: EOMI - ENT Exam ENT Exam: Mucous Membranes Moist - Neck Exam Neck Exam: Full ROM, Normal Inspection - Respiratory Exam Respiratory Exam: NORMAL BREATHING PATTERN. absent: Respiratory Distress - Cardiovascular Exam Cardiovascular Exam: +S1, +S2 - GI/Abdominal Exam GI & Abdominal Exam: Soft, Normal Bowel Sounds. absent: Tenderness - Extremities Exam Extremities Exam: Full ROM, Normal Inspection - Neurological Exam Neurological Exam: Alert, Awake, CN II-XII Intact, Oriented x3 - Psychiatric Exam Psychiatric exam: Normal Affect, Normal Mood - Skin Skin Exam: Dry, Intact, Normal Color, Warm Assessment and Plan - Assessment and Plan (Free Text) Assessment: This is a 66 yo male with past medical hx of HTN, HLD, DM presenting with unstable angina/uncontrolled htn 1. Unstable angina/r/o ACS -s/p cath: shows nonobstructive coronaries -dilated aortic root -ct angiogram pending - abnormal stress test -echo shows normal LV fx, mild AR, septal hypertrophy -asa 81 mg po daily -plavix 75 daily -lovenox 40 -hold above for procedure today -EKG shows sinus tachy at 102 -CXR showed mild venous congestion -trops negative x 3 -BNP wnl 2. hypertensive urgency -increased norvasc to 10 daily -losartan 50 -lopressor bid 3. hx of DM -ISS -lantus 7 units HS 4. hx of HLD -crestor 10 5. GI/DVT ppx -lovenox -protonix discussed with Dr. Abdi.
[2017-02-17] MEDS: Enoxaparin 40 mg Syringe SC SCH (10:07)
[2017-02-17 11:19] VITALS: BP 131/80
[2017-02-17 12:06] VITALS: PULSE 57
--- NOTE | 2017-02-17 17:29 | CP.PCM.PN ---
Subjective - Date & Time of Evaluation Date of Evaluation: 02/17/17 Time of Evaluation: 10:20 - Subjective Subjective: clinically same Objective - Vital Signs/Intake and Output Vital Signs (last 24 hours): Temp Pulse Resp BP Pulse Ox 98.1 F 57 L 20 131/80 95 02/17/17 07:20 02/17/17 12:02 02/17/17 07:20 02/17/17 11:18 02/17/17 07:20 Intake and Output: 02/17/17 02/17/17 06:59 18:59 Intake Total 2400 1400 Balance 2400 1400 - Medications Medications: Current Medications Amlodipine Besylate (Norvasc) 10 mg PO DAILY [facility] Last Admin: 02/17/17 10:08 Dose: 10 mg Aspirin (Aspirin Chewable) 81 mg PO DAILY [facility] Last Admin: 02/17/17 10:06 Dose: 81 mg Clopidogrel Bisulfate (Plavix) 75 mg PO DAILY [facility] Last Admin: 02/17/17 10:08 Dose: 75 mg Enoxaparin Sodium (Lovenox) 40 mg SC DAILY [facility] Last Admin: 02/17/17 10:07 Dose: 40 mg Sodium Chloride (Sodium Chloride 0.9%) 1,000 mls @ 100 mls/hr IV .Q10H [facility] Last Admin: 02/17/17 11:59 Dose: Not Given Insulin Aspart (Novolog) 0 unit SC [facility] PRN Reason: Protocol Last Admin: 02/17/17 12:57 Dose: 2 unit Insulin Glargine (Lantus) 7 unit SC [facility] Last Admin: 02/16/17 22:16 Dose: 7 u Losartan Potassium (Cozaar) 50 mg PO DAILY [facility] Last Admin: 02/17/17 10:07 Dose: 50 mg Metoprolol Tartrate (Lopressor) 25 mg PO BID [facility] Last Admin: 02/17/17 11:18 Dose: 25 mg Rosuvastatin Calcium (Crestor) 10 mg PO HS [facility] Last Admin: 02/16/17 22:15 Dose: 10 mg - Labs Labs: 02/17/17 07:10 02/17/17 07:10 PT 12.1 SECONDS (9.7-12.2) 02/16/17 08:04 INR 1.1 02/16/17 08:04 APTT 34 SECONDS (21-34) 02/16/17 08:04 - Constitutional Appears: Well - Head Exam Head Exam: ATRAUMATIC, NORMAL INSPECTION, NORMOCEPHALIC - Eye Exam Eye Exam: EOMI, Normal appearance, PERRL Pupil Exam: NORMAL ACCOMODATION, PERRL - ENT Exam ENT Exam: Mucous Membranes Moist, Normal Exam - Neck Exam Neck Exam: Full ROM, Normal Inspection. absent: Lymphadenopathy - Respiratory Exam Respiratory Exam: Decreased Breath Sounds - Cardiovascular Exam Cardiovascular Exam: REGULAR RHYTHM, +S1, +S2 - GI/Abdominal Exam GI & Abdominal Exam: Soft, Diminished Bowel Sounds - Rectal Exam Rectal Exam: Deferred
--- NOTE | 2017-02-21 02:34 | CARDCATH ---
PROCEDURE DATE: 02/16/2017 PROCEDURES: 1. Left heart catheterization. 2. Coronary angiography. 3. Ascending aortic root angiography. 4. Radiological supervision and interpretation of coronary angiography and left ventricular angiography. REFERRING PHYSICIAN: Griselda Abdi MD PERFORMING PHYSICIAN: Moises Moses MD CLINICAL INDICATIONS: 1. Angina. 2. Hypertension. 3. Diabetes. 4. Abnormal stress test. PROCEDURE: After informed consent, the patient was prepped and draped in the usual sterile fashion. A 2% lidocaine was given in the right groin for local anesthesia. Using micropuncture technique, 6-Vietnamese sheath was introduced into right common femoral artery. A JL4 6-Vietnamese diagnostic catheter was engaged into the left main coronary artery. Left coronary angiography has revealed patent left anterior descending coronary artery. Left anterior descending coronary artery gives two diagonal branches which are patent. Left main divided into second branch which is left circumflex coronary artery. The left circumplex coronary artery is dominant. Left circumflex and its branches of obtuse marginal coronaries are patent. Using [place] right 4 diagnostic catheter, right coronary artery was engaged. Initial angiography has revealed right coronary artery has small nondominant artery. Proximal right coronary artery has nonobstructive 60% to 70% stenosis. The right coronary artery has a 50% stenosis. A 6-Vietnamese pigtail catheter was inserted into the left ventricle. EDP is 12. Hand injection was performed to assess LV function. LV angiography confirmed LV ejection fraction of 60%. No wall motion abnormalities noted. After the procedure, Perclose was deployed in the right groin with excellent hemostasis. The patient tolerated the procedure well. CONCLUSION: After the coronary angiography, LV angiography, radiological interpretation and supervision, the patient has a nonobstructive coronaries. Nondominant right coronary artery has a 60 to 70% ostial stenosis. Recommend medical management. Moises Moses MD
== END 2017-02-17 17:20 | disposition home or self-care (01) | DRG 287 ==
LOC: C.ER 16:04 → C.9E 18:34 → C.6T 21:51
PROVIDERS: ADMIT Internal Medicine Nephrology; ATTEND Internal Medicine Nephrology
PROC: B211YZZ Fluoroscopy of Multiple Coronary Arteries using Other Contrast (ICD-10-PCS; 2017-02-16)
PROC: B215YZZ Fluoroscopy of Left Heart using Other Contrast (ICD-10-PCS; 2017-02-16)
PROC: 4A023N7 Measurement of Cardiac Sampling and Pressure, Left Heart, Percutaneous Approach (ICD-10-PCS; principal; 2017-02-16 10:00)
DX: R07.89 Other chest pain (principal); E11.9 Type 2 diabetes mellitus without complications; E78.5 Hyperlipidemia, unspecified; I16.0 Hypertensive urgency; J45.909 Unspecified asthma, uncomplicated; F17.200 Nicotine dependence, unspecified, uncomplicated; Z88.0 Allergy status to penicillin; Z79.4 Long term (current) use of insulin; I77.819 Aortic ectasia, unspecified site